=== PATIENT | male | born 1950 | race Caucasian/White ===

== ENCOUNTER → 2017-03-30 | Day surgery (SDC) | payer OTHER ==
[~2017-03-30] MED LIST: ACETAMINOPHEN 325 MG TAB ONE; BUPIVACAINE HCL PF 0.75% 30 ML VIAL ONE; EPINEPHrine HCL (1:1000) 30 MG/30 ML VIAL ONE; KETOROLAC TROMETHAMINE 30 MG/ML (IVP) VIAL IV PUSH ONE; LACTATED RINGER'S 1000 ML INJ 1,000 ML ONE; LIDOCAINE 1.5%/EPINEPHrine 1:200,000 PF SOLN 30 ML AMP ONE; MIDAZOLAM HCL 5 MG/ML VIAL (1 ML) ONE; ONDANSETRON HCL 4 MG/2 ML VIAL IV PUSH ONE; PROPOFOL 200 MG/20 ML AMP IV ONE; ceFAZolin 2 GM PREMIX 50 ML ONE
--- NOTE | 2017-04-01 20:51 | MP ---
cc: LUBNA PLATT M.D. DATE OF SURGERY: 03/30/2017. PREOPERATIVE DIAGNOSIS: Left shoulder rotator cuff tendon tear, left shoulder impingement syndrome, left shoulder SLAP labral tear, left shoulder chondromalacia glenohumeral joint. POSTOPERATIVE DIAGNOSES Left shoulder rotator cuff tendon tear, left shoulder impingement syndrome, left shoulder SLAP labral tear, left shoulder chondromalacia glenohumeral joint. OPERATIVE PROCEDURE PERFORMED: Left shoulder arthroscopic rotator cuff repair, left shoulder arthroscopic subacromial decompression, left shoulder arthroscopic extensive debridement of labral SLAP tear with chondroplasty of the glenohumeral joint. SURGEON: Dr. Lubna Platt. SHIPPING AND RECEIVING CLERK: DEB Pate. ANESTHESIA: General with an anterior scalene block. ESTIMATED BLOOD LOSS: Less than 10 cc. COMPLICATIONS: None. IMPLANTS USED: Arthrex. JUSTIFICATION FOR THE PROCEDURE: This patient is a 66-year-old male with injury and pain as related to the left shoulder. He has had persistence of symptoms with progressive pain and he has failed conservative treatment. Clinical exam as well as MRI confirmed the above-named findings. The patient was counselled as to the risks, benefits and alternatives to the above-named proposed surgical procedure and did wish to proceed with surgery. DESCRIPTION OF THE PROCEDURE IN DETAIL: Written consent was obtained. The patient was identified by name and taken to the operating room and placed in the supine position on the operating table. General anesthesia was administered as well as 2 grams of IV Ancef. The patient did receive preoperative anterior interscalene block. The patient was carefully turned to the right lateral decubitus position and a lateral arm roll was placed. All bony prominences and pressure points were well padded. The patient's neck position was monitored and kept neutral. An arthroscopic arm alfonso was placed in 10 pounds of traction gently placed to the left upper extremity. The left shoulder region was prepped and draped using isopropyl alcohol, Hibiclens solution and DuraPrep solution. After time-out was performed, standard posterior and anterior glenohumeral arthroscope portals were established. The glenohumeral joint revealed evidence of extensive labral tearing along the anterior, superior and posterior portions. An arthroscopic shaver was introduced from the anterior portal and extensive debridement of the labrum and glenohumeral joint was performed. The debridement was performed along the anterior 3 o'clock position up to the superior 12 o'clock position and back down to the posterior 9 o'clock position. The biceps origin was intact. There was evidence of chondromalacia of the glenohumeral joint. A chondroplasty was performed along both the glenoid and humeral head. No full-thickness chondral erosion was noted and the cartilage was debrided to a smooth stable base. There was evidence of high-grade rotator cuff tearing along the anterior portion of supraspinatus tendon as visualized on glenohumeral joint which was also debrided. Attention was turned to the subacromial space where there was evidence of impingement with bursitis. An arthroscopic shaver was introduced from a lateral portal. A subacromial decompression was performed. The shaver was used to perform an extensive bursectomy. An arthroscopic bur was used to perform an acromioplasty and the cautery device was used to release the coracoacromial ligament. The rotator cuff tendon tear was identified. The bur was used to decorticate the greater tuberosity in preparation for rotator cuff tendon repair. A Arthrex scorpion device was used to shuttle #2 FiberTape suture in a horizontal mattress pattern through the torn tendon. The sutures were then placed through the eyelet of an Arthrex 4.75 mm Bio SwiveLock anchor. The sutures were tensioned and the anchor was inserted in the greater tuberosity. The repair was probed and noted to have good stability and fixation. At the conclusion of the surgical procedure, the arthroscopic portals were closed with 3-0 Prolene suture. Sterile dressings were applied. The patient was placed in a sling and swath immobilizer. He tolerated the procedure well with no intraoperative complications noted. NOTE Edgardo Khalil, physician elementary assistant teacher-certified, was present during the entire procedure to include patient positioning and the procedure itself. The medical necessity of a physician elementary assistant teacher was indicated in this case due to the complexity of the procedure itself. He assisted with appropriate manipulation of the arm and also manipulation of the camera for visualization purposes. He also assisted with shuttling of sutures and also implantation of the suture anchor for purposes of rotator cuff tendon repair. MD LA NENA Calvo/AMANDA /8:21 AM /8:37 PM
== END | disposition home or self-care (01) ==
LOC: ESDC 06:10
PROVIDERS: ATTEND Orthopaedic Surgery Sports Medicine
DX: M75.102 Unspecified rotator cuff tear or rupture of left shoulder, not specified as traumatic (principal); M94.212 Chondromalacia, left shoulder; M75.42 Impingement syndrome of left shoulder; S43.432A Superior glenoid labrum lesion of left shoulder, initial encounter
CPT/HCPCS: 01630; 01991; 29823; 29826; 29827; 64417; C1713; J0171; J0690; J1885; J2250; J2405; J7120